=== PATIENT | female | born 1940 | race Two or more races ===

== ENCOUNTER 2017-06-11 17:58 | Emergency (ER) | payer OTHER, MEDICAID ==
[~2017-06-11] VITALS: Ht 154.9 cm; Wt 49.9 kg
[~2017-06-11 17:58] MED LIST: ALLO100T PO; FURO-144 PO; GLIP5TAB13 PO; SIMV10TA6 PO
--- NOTE | 2017-06-11 17:58 | NUR ---
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 PT HAS RT ARM PICC LINE FLUSHING WELL. RT ARM DIALYSIS CATH. PT ON WOUND VAC. PLACED ON MONITOR. AWAITING MD ORDER
--- NOTE | 2017-06-11 18:13 | NUR ---
EKG IN PROGRESS
[2017-06-11] MEDS ORDERED: IV NS 0.9% 1,000 ML BAG IV ONE ×2 (18:30→19:00)
[2017-06-11 18:36] LABS: BASOPHILS # (AUTO) 0.3 /CMM (0.0-0.2); BASOPHILS % (AUTO) 1.9 % (0.0-2.0); EOSINOPHILS # (AUTO) 0.6 /CMM (0.0-0.7); EOSINOPHILS % (AUTO) 3.5 % (0.0-6.0); HEMATOCRIT 25 % (33-45); HEMOGLOBIN 8.1 g/dL (11.5-14.8); LYMPHOCYTES # (AUTO) 0.5 /CMM (0.8-4.8); LYMPHOCYTES % (AUTO) 2.9 % (20.0-44.0); MEAN CORPUSCULAR HEMOGLOBIN 30 PG (26.0-33.0); MEAN CORPUSCULAR HGB CONC 33 g/dl (31.0-36.0); MEAN CORPUSCULAR VOLUME 92 fL (82-100); MONOCYTES # (AUTO) 0.8 /CMM (0.1-1.30); MONOCYTES % (AUTO) 4.2 % (2.0-12.0); NEUTROPHILS # (AUTO) 15.7 /CMM (1.8-8.9); NEUTROPHILS % (AUTO) 87.5 % (43.0-81.0); PLATELET COUNT (AUTO) 183 /CMM (150-450); RDW COEFFICIENT OF VARIATION 23.4 (11.5-15.0); WHITE BLOOD COUNT (AUTO) 17.9 K/uL (4.3-11.0)
[2017-06-11] MEDS ORDERED: ACETAMINOPHEN 325 MG TABLET ONE (18:40)
[2017-06-11 18:49] LABS: INR 1.16 (0.87-1.13); PROTHROMBIN TIME 12.1 SECS (9.5-12.7)
[2017-06-11 18:53] LABS: TROPONIN I 0.048 ng/mL (0.00-0.056)
[2017-06-11 18:56] LABS: CALCIUM, SERUM 9.3 mg/dL (8.5-10.1); CARBON DIOXIDE 29 mmol/L (21-32); CHLORIDE 103 mmol/L (98-107); CREATININE 2.4 mg/dL (0.6-1.3); GLUCOSE 86 mg/dL (74-106); POTASSIUM 4.2 mmol/L (3.5-5.1); SODIUM SERUM 138 mmol/L (136-145); UREA NITROGEN, BLOOD 23 mg/dL (7-18)
[2017-06-11] MEDS ORDERED: PIPERACILLIN /TAZOBACTAM 3.375 G in IV D5W 50 ML IV ONE (19:00)
[2017-06-11] MEDS ORDERED: VANCOMYCIN 1 GM in IV D5W 250 ML IV ONE (19:00)
[2017-06-11] MEDS ORDERED: ACETAMINOPHEN 325 MG TABLET PO ONE (19:00)
[2017-06-11 19:02] LABS: ALANINE AMINOTRANSFERASE 9 U/L (12-78); ALBUMIN 1.6 g/dL (3.4-5.0); ALKALINE PHOSPHATASE 95 U/L (46-116); ASPARTATE AMINOTRANSFERASE 27 U/L (15-37); BILIRUBIN,DIRECT 0.2 mg/dL (0.0-0.2); BILIRUBIN,TOTAL 0.6 mg/dL (0.2-1.0)
--- NOTE | 2017-06-11 19:15 | NUR ---
REPORT REC'D FROM MAGALY VILLAFUERTE FOR [facility]. PT'S SON IS AT THE BEDSIDE. PT IS ON THE MONITOR AND CONTINUOUS PULSE OX. PT IS RECEIVING SEPIS FLUID. PT IS HYPOTENSIVE. AWARE.
[2017-06-11 19:42] LABS: APPEARANCE,URINE TURBID (CLEAR); BILIRUBIN,URINE 2+ (NEGATIVE); BLOOD, URINE 3+ Ery/uL (NEGATIVE); COLOR,URINE BROWN (YELLOW); KETONES,URINE NEGATIVE (NEGATIVE); LEUKOCYTE ESTERASE ,URINE 3+ (NEGATIVE); NITRITE, URINE POSITIVE (NEGATIVE); PH,URINE 7.5 (5.0-8.0); PROTEIN,URINE 3+ mg/dl (NEGATIVE); UGLUCOSE TRACE mg/dL (NEGATIVE)
[2017-06-11 19:56] LABS: BACTERIA,URINE 4+ /HPF (None Seen); SQUAMOUS EPITHELIAL CELL,UR 0-2 /HPF (None Seen); WBC,URINE TOO NUMEROUS TO COUN /HPF (0-3)
--- NOTE | 2017-06-11 20:15 | NUR ---
L HAND 3+ PITTING EDEMA NOTED.
--- NOTE | 2017-06-11 20:15 | NUR ---
SEPSIS FLUID STILL INFUSING
--- NOTE | 2017-06-11 20:34 | NUR ---
CALLED [facility] SPOKE WITH CED, EXPECTING A CALL BACK FROM A [facility]
--- NOTE | 2017-06-11 20:44 | NUR ---
DR. SHAH [facility] SALAZAR MD
--- NOTE | 2017-06-11 20:53 | NUR ---
SEPSIS FLUID REASSESSMENT DONE. PT APPEARS TO BE RESTING COMFORTABLY WITH NO S/S OF PAIN OR DISTRESS. PT'S VSS. PT IS ON THE MONITOR AND CONTINUOUS PULSE OX. WOUND VAC IS DRAINING.
[2017-06-11] MEDS ORDERED: ASPIRIN 325 MG TABLET PO ONE (21:00)
[2017-06-11] MEDS ORDERED: ASPIRIN 325 MG TABLET ONE (21:10)
--- NOTE | 2017-06-11 21:15 | NUR ---
PT APPEARS TO BE RESTING COMFORTABLY WITH NO S/S OF PAIN OR DISTRESS.
--- NOTE | 2017-06-11 21:29 | NUR ---
[facility] CALLED WITH TRANSFER INFORMATION. [facility] DR MARKHAM ACCEPTED . NUMBER TO GIVE REPORT [facility] ETA [phone]
--- NOTE | 2017-06-11 21:39 | NUR ---
CALLING REPORT TO [facility].
--- NOTE | 2017-06-11 21:44 | NUR ---
REPORT GIVEN TO MAGALY ESTRADA AT [facility].
--- NOTE | 2017-06-11 21:54 | NUR ---
PT WAS ADJUSTED IN BED. PILLOW PLACED ON LEFT SIDE. PILLOW PLACED UNDER PT'S BILATERAL FEET. LUE ELEVATED TO REDUCE EDEMA.
--- NOTE | 2017-06-11 22:29 | NUR ---
TRANSPORT ARRIVED. REPORT GIVEN TO [facility].
--- NOTE | 2017-06-11 22:30 | NUR ---
COPY OF CHART AND ALL IMAGING GIVEN. PT LEFT VIA AMBULANCE.
[2017-06-11 22:34] VITALS: BP 121/44
== END 2017-06-11 22:33 ==
LOC: ER 18:04
DX: A41.9 Sepsis, unspecified organism (principal); N39.0 Urinary tract infection, site not specified; I12.0 Hypertensive chronic kidney disease with stage 5 chronic kidney disease or end stage renal disease; E11.22 Type 2 diabetes mellitus with diabetic chronic kidney disease; N18.6 End stage renal disease; J18.9 Pneumonia, unspecified organism; J84.9 Interstitial pulmonary disease, unspecified; E78.5 Hyperlipidemia, unspecified; D64.9 Anemia, unspecified; Z99.2 Dependence on renal dialysis
CPT/HCPCS: 36415; 71010; 80048; 80076; 81001; 83605; 84145; 84484; 85025; 85730; 87040 ×2; 87081; 87086; 93005; 96365; 96367; 99291; A4606; J2543 ×2; J3370; J7060 ×3; 81000-TC; J7030; J7040; Z7610